=== PATIENT | male | born 1985 | race African-American/Black ===

== ENCOUNTER 2023-06-14 09:43 | Emergency (ER) | payer OTHER ==
[~2023-06-14] VITALS: Ht 157.5 cm; Wt 84.4 kg
== END 2023-06-14 10:50 | disposition home or self-care (01) ==
LOC: ED 09:43
DX: N41.9 Inflammatory disease of prostate, unspecified (principal); R30.0 Dysuria; R39.11 Hesitancy of micturition
CPT/HCPCS: 81002; 99282

== ENCOUNTER 2023-06-23 08:01 | Outpatient (CLI) | payer OTHER | END 2023-06-23 21:01 | disposition home or self-care (01) | LOC: US 08:01 | PROVIDERS: ATTEND Nurse Practitioner Family | DX: R39.11 Hesitancy of micturition (principal); R10.9 Unspecified abdominal pain ==